=== PATIENT | female | born 1945 | race Caucasian/White ===

== ENCOUNTER 2017-02-27 13:36 | Emergency (ER) | payer MEDICARE, OTHER ==
[2017-02-27 14:10] LABS: BASOPHIL# 0.1 X 10^3uL (0.0-0.1); EOSINOPHILS 2.9 % (0.0-6.0); EOSINOPHILS# 0.2 X 10^3uL (0.0-0.4); HEMATOCRIT 43.8 % (36.0-48.0); HEMOGLOBIN 14.9 g/dL (12.0-16.0); LYMPHOCYTES 36.8 % (20.0-40.0); LYMPHOCYTES# 3.1 X 10^3uL (0.8-3.8); MEAN CELL VOLUME 92.5 fL (80.0-100.0); MEAN CORPUS. HGB CONCENTRATION 33.9 g/dL (32.0-36.0); MEAN CORPUSCULAR HEMOGLOBIN 31.4 pg (29.0-35.0); MEAN PLATELET VOLUME 10.3 fL (7.4-10.4); MONOCYTES 13.3 % (2.0-10.0); MONOCYTES# 1.1 X 10^3uL (0.2-1.0); RED BLOOD COUNT 4.73 X 10^6uL (4.20-6.10); WHITE BLOOD COUNT 8.5 X 10^3uL (3.9-10.7)
[2017-02-27 14:20] LABS: POTASSIUM 3.8 mmol/L (3.5-5.1)
[2017-02-27] MEDS ORDERED: ONDANSETRON HCL 4 MG/2 ML VIAL ONE (14:35)
[2017-02-27] MEDS ORDERED: LOPERAMIDE HCL 2 MG CAPSULE PO ONE (14:35)
--- NOTE | 2017-02-27 15:23 | ER PHYSICIAN DOCUMENTATION ---
Physician Documentation [facility] Name:Fannie Puente Age:72 yrs Sex:Female :1945 Arrival Date:02/27/2017 Time:13:36 Bed3 Private MD: Juan Diego Felder Disposition: 02/27/17 15:01 Discharged to Home/Self Care. Impression: Syncope. - Condition is Good. - Discharge Instructions: SYNCOPE, Unk Cause. - Medical Reconciliation form form. - Follow up: Private Physician; When: As needed; Reason: Continuance of care. - Problem is new. - Symptoms have improved. HPI: 02/27 14:26 This 72 yrs old Female presents to ER via EMS with complaints of General jm Weakness. 14:26 The patient has experienced syncope, collapsed. Onset: The symptom(s)/episode jm began/occurred just prior to arrival. Duration: The patient has had multiple episodes, that last 10 second(s). Context: the episode(s) was witnessed, by family, , Just prior to the episode the patient experienced stomach queasiness . Associated injury: The patient did not suffer any apparent associated injury. Associated signs and symptoms: Pertinent positives: diarrhea, nausea, Pertinent negatives: chest pain, lightheadedness, shortness of breath. Current symptoms: Currently, the patient is not experiencing any symptoms. The patient has not experienced similar symptoms in the past. Pt felt a rumbling in her stomach and then got very hot, sweaty and lightheaded. She passed out. She had some diarrhea afterwards. Pt continues to have diarrhea in the ER and nausea. Pt pretty sure the feeling in her stomach caused this. . Historical: - Home Meds: 1. lisinopril-hydrochlorothiazide oral 2. simvastatin 20 mg oral tab 3. levothyroxine oral once daily for Hypothyroidism - PMHx: Hypertension; HYPOTHYROIDISM; Hyperlipidemia; - PSHx: None; - Tetanus: < 10 years. - Ebola Screening: : Patient negative for fever greater than or equal to 101.5 degrees Fahrenheit, and additional compatible Ebola Virus Disease symptoms. Patient denies exposure to infectious person. Patient denies travel to an Ebola-affected area in the 21 days before illness onset. . - Social history: Smoking status: Patient states was never smoker of tobacco. - Immunization history: Pneumococcal vaccine is up to date, Flu Vaccine < 1 year. ROS: 14:28 Constitutional: Negative for fatigue, fever, malaise. jm 14:28 ENT: Negative for rhinorrhea, sinus congestion, sinus pain, sore throat. 14:28 Cardiovascular: Negative for chest pain, palpitations. 14:28 Abdomen/GI: Positive for nausea, diarrhea, Negative for abdominal pain, vomiting. 14:28 Neuro: Positive for syncope, Negative for dizziness, weakness. 14:28 All other systems are negative. Exam: 14:29 Constitutional: The patient appears alert, awake, comfortable. jm 14:29 Head/face: Exam is negative for swelling, Sinus tenderness, is not appreciated. 14:29 Eyes: Pupils: equal, round, and reactive to light and accomodation, Extraocular movements: intact throughout. 14:29 ENT: Mouth: Oral mucosa: dry, Posterior pharynx: is normal. 14:29 Cardiovascular: Rate: normal, Rhythm: regular. 14:29 Respiratory: the patient does not display signs of respiratory distress, Respirations: normal. 14:29 Abdomen/GI: Bowel sounds: normal, Palpation: abdomen is soft and non-tender. 14:29 Musculoskeletal/extremity: ROM: intact in all extremities, Circulation is intact in all extremities. 14:29 Skin: Appearance: Color: pink, no rash present. 14:29 Neuro: Mentation: is normal, Memory: is normal. 14:29 Neuro: Gait: is steady. 14:29 Psych: Behavior/mood is pleasant, cooperative, Affect is calm. Vital Signs: 13:47 BP 141 / 85 (auto/); lp 14:00 BP 140 / 69 (auto/); lp 14:01 BP 141 / 85; Pulse 93; Resp 16; Temp 98.2(TE); Pulse Ox 95% on R/A; Weight 70.31 kg; lp Height 5 ft. 4 in. (162.56 cm); Pain 0/10; 14:44 Pulse 79 MON; Resp 19; Pulse Ox 92% ; lp 14:01 Body Mass Index 26.61 (70.31 kg, 162.56 cm) lp MDM: 13:38 Patient medically screened. 14:17 EKG attached lp 14:19 EKG attached lp 14:30 Differential Diagnosis: emotional response, vasovagal episode. Data reviewed: vital jm signs, nurses notes, and as a result, I will discharge patient. 15:29 Neurological re-evaluation: normal neurological exam including cranial nerves, jm orientation, mentation, motor and sensory exam, cerebellar testing, GCS normal, and normal gait. Counseling: I had a detailed discussion with the patient and/or guardian regarding: the historical points, exam findings, and any diagnostic results supporting the discharge/admit diagnosis, lab results, the need for outpatient follow up, with the patient's primary care provider. ECG:. Response to treatment: the patient's symptoms have markedly improved after treatment, and as a result, I will discharge patient. ED course: Pt better after IVF and zofran. DC home. . 02/27 14:21 Order name: BASIC METABOLIC PANEL; Complete Time: 15:00 EDMS 02/27 14:59 Order name: CBC AUTO DIF, MDIF/RMOR IF IND; Complete Time: 15:00 EDSC 02/27 14:02 Order name: 12-lead EKG; Complete Time: 14:10 02/27 14:02 Order name: Continuous Cardiac Monitoring; Complete Time: 14:10 02/27 14:02 Order name: I & O; Complete Time: 14: 02/27 14:02 Order name: NPO; Complete Time: 14:10 02/27 14:02 Order name: Oxygen; Complete Time: 14:10 02/27 14:02 Order name: Pulse Ox Continuous; Complete Time: 14:10 EC:29 Rhythm is regular. QRS [place] is Normal. PA interval is normal. QRS interval is normal. QT interval is normal. No Q waves. T waves are Normal. No ST changes noted. Dispensed Medications: 14:10 Drug: NS 0.9% 1000 ml; Route: IV; Rate: bolus; Site: left antecubital; lp 15:37 Follow up: Response: No adverse reaction; No change in condition; IV Status: Completed lp infusion; IV Intake: 1000ml 14:24 Drug: Zofran 4 mg; Route: IVP; Infused Over: 2 mins; Site: left antecubital; lp 15:37 Follow up: Response: No adverse reaction; Nausea is decreased lp 14:24 Drug: Imodium A-D 2 mg; Route: PO; lp 15:38 Follow up: Response: No adverse reaction; No change in condition lp Signatures: Yasmin Nixon RN RN lp Juan Diego Baker MD MD jm Hofsess, Rachel
--- NOTE | 2017-02-27 15:23 | ER NURSING DOCUMENTATION ---
Nurse's Notes [facility] Name:Fannie Puente Age:72 yrs Sex:Female :1945 Arrival Date:02/27/2017 Time:13:36 Bed3 Private MD: Diagnosis:Syncope Presentation: 02/27 13:40 Presenting complaint: Patient states: Dizziness. Transition of care: Home. lp 13:40 Acuity: AVELINO 3 lp 13:40 Method Of Arrival: EMS: 410 lp Triage Assessment: 14:01 General: Appears in no apparent distress, Behavior is appropriate for age. Pain: Denies lp pain. 14:06 Cardiovascular: Capillary refill < 3 seconds Heart tones S1 S2 Pulses are all present. lp Respiratory: Airway is patent Trachea midline Respiratory effort is even, unlabored. GI: Reports diarrhea. : No deficits noted. Derm: No deficits noted. Historical: - Home Meds: 1. lisinopril-hydrochlorothiazide oral 2. simvastatin 20 mg oral tab 3. levothyroxine oral once daily for Hypothyroidism - PMHx: Hypertension; HYPOTHYROIDISM; Hyperlipidemia; - PSHx: None; - Tetanus: < 10 years. - Ebola Screening: : Patient negative for fever greater than or equal to 101.5 degrees Fahrenheit, and additional compatible Ebola Virus Disease symptoms. Patient denies exposure to infectious person. Patient denies travel to an Ebola-affected area in the 21 days before illness onset. . - Social history: Smoking status: Patient states was never smoker of tobacco. - Immunization history: Pneumococcal vaccine is up to date, Flu Vaccine < 1 year. Screenin:08 Infectious Disease Risk None. Abuse screen: Denies threats or abuse. Denies injuries lp from another. Nutritional screening: No deficits noted. Vital Signs: 13:47 BP 141 / 85 (auto/); lp 14:00 BP 140 / 69 (auto/); lp 14:01 BP 141 / 85; Pulse 93; Resp 16; Temp 98.2(TE); Pulse Ox 95% on R/A; Weight 70.31 kg; lp Height 5 ft. 4 in. (162.56 cm); Pain 0/10; 14:44 Pulse 79 MON; Resp 19; Pulse Ox 92% ; lp 14:01 Body Mass Index 26.61 (70.31 kg, 162.56 cm) lp ED Course: 13:37 Patient arrived in ED. cj 13:40 Yasmin Nixon, RN is Primary Nurse. lp 13:41 Triage completed. lp 14:01 Juan Diego Baker MD is Attending Physician. jm 14:[address] Baker notified. lp 14:08 Valuables Remains with patient Patient has correct armband on for positive lp identification. Placed in gown. Bed in low position. Call light in reach. Side rails up X 1. 14:08 Inserted peripheral IV: 20 gauge in left antecubital area and blood collected. lp 14:15 Cardiac Monitoring On for Nurse Monitoring only. Pulse Ox - RN Monitoring Only NIBP On lp - RN Monitoring Only. 14:17 EKG attached lp 14:19 EKG attached lp Administered Medications: 14:10 Drug: NS 0.9% 1000 ml; Route: IV; Rate: bolus; Site: left antecubital; lp 15:37 Follow up: Response: No adverse reaction; No change in condition; IV Status: Completed lp infusion; IV Intake: 1000ml 14:24 Drug: Zofran 4 mg; Route: IVP; Infused Over: 2 mins; Site: left antecubital; lp 15:37 Follow up: Response: No adverse reaction; Nausea is decreased lp 14:24 Drug: Imodium A-D 2 mg; Route: PO; lp 15:38 Follow up: Response: No adverse reaction; No change in condition lp Intake: 15:37 IV: 1000ml; Total: 1000ml. lp Outcome: 15:01 Discharge ordered by . 15:22 Discharged to home ambulatory, with significant other. 15:22 Condition: improved 15:22 Discharge instructions given to patient, significant other, Instructed on discharge instructions, follow up and referral plans. 15:22 IV D/[place] 15:22 Patient left the ED. rh Signatures: Yasmin Nixon, DAWIT RN Juan Diego Li MD MD jm Hofsess, Rachel rh Jones, Carissa
== END 2017-02-27 15:23 | disposition home or self-care (01) ==
LOC: ER 13:36
DX: R55 Syncope and collapse (principal); R11.0 Nausea; R19.7 Diarrhea, unspecified; E86.0 Dehydration; I10 Essential (primary) hypertension; Z79.899 Other long term (current) drug therapy
CPT/HCPCS: 80048; 85025; 93005; 93010; 96361; 96374; 99284; 99285; A0425; A0427; J2405